=== PATIENT | female | born 1990 | race Caucasian/White ===

== ENCOUNTER 2023-03-30 10:31 | Emergency (ER) | payer OTHER ==
[~2023-03-30] VITALS: Ht 167.6 cm; Wt 73.1 kg
[2023-03-30] MEDS ORDERED: MELOXICAM7.5 MG PO (11:24)
[2023-03-30] MEDS ORDERED: NORETHIND-ETH1 EACH PO (11:24)
[2023-03-30] MEDS ORDERED: DIVALPROEX SOD250 MG PO (11:24)
[2023-03-30 11:46] LABS: BASOPHILS 0.6 % (0-2); EOSINOPHILS 0.4 % (0-6); HEMATOCRIT 38.2 % (35.0-50.0); MCH 32.3 (27-36); MCV 95.1 fl (81-99); MONOCYTES 8.5 % (0-12); NEUTROPHILS 67.5 % (39-80); PLATELET COUNT 266 K/uL (140-440); RBC 4.01 M/ul (4.3-5.7); RDW 13.2 (10.5-15.0)
[2023-03-30 11:51] LABS: BILIRUBIN, URINE NEGATIVE (negative); BLOOD/HGB, URINE NEGATIVE (Negative); KETONE, URINE SMALL (Negative); LEUK ESTERASE, URINE NEGATIVE (negative); NITRITE, URINE NEGATIVE (negative)
[2023-03-30 12:24] LABS: ALBUMIN 3.8 g/dL (3.4-5.0); ALBUMIN/GLOBULIN RATIO 1.06 (1.1-2.4); ANION GAP 11.6 (7-21); BILIRUBIN, TOTAL 0.3 ng/dL (0.2-1.0); BUN/CREATININE RATIO 21.05 (6.0-28.6); CALCIUM 8.6 mg/dL (8.5-10.1); CREATININE, SERUM 0.76 mg/dL (0.55-1.02); POTASSIUM 3.6 mmol/L (3.5-5.1); PROTEIN, TOTAL 7.4 g/dL (6.4-8.2)
[2023-03-30 14:32] VITALS: BP 117/67
== END 2023-03-30 14:33 | disposition home or self-care (01) ==
LOC: ED 10:31
PROVIDERS: Emergency Medicine
DX: I88.0 Nonspecific mesenteric lymphadenitis (principal); Z88.0 Allergy status to penicillin; Z79.899 Other long term (current) drug therapy
CPT/HCPCS: 36415; 74177; 80053; 81003; 83690; 84703; 85025; Q9967